=== PATIENT | male | born 2000 | race Caucasian/White ===

== ENCOUNTER 2024-02-20 01:59 | Emergency (ER) | payer BC, SELFPAY ==
[2024-02-20 02:01] VITALS: BP 159/94
[2024-02-20 02:08] VITALS: BMI 32.1
--- NOTE | 2024-02-20 02:22 | ED.SKININJ ---
HPI-Injury
General
Chief Complaint: Bite
Source: patient
Exam Limitations: none
Time Seen by Provider: 02/20/24 02:08
Nursing documentation reviewed up to this point in time: agreed with
History of Present Illness-Injury
Is this injury a work related problem?: No
Is pt an associate of [facility]?: No
Initial Injury comments:
23-year-old male bitten in the right foot by cat which was a stray that he recently took in he took to The track liner operator started his rabies series, patient has no redness or signs of infection at the bite he is wondering if he needs rabies it is now
his pet cat and is in his possession at home acting normally
Past History
Past History
ED Past Medical History: None
ED Past Surgical History: None
Social History
Tobacco: Non-smoker
Alcohol: None
Drug: None
Personal: Single
Living: alone
Employment: Employed
Review of Systems
Review of Systems
All Other Systems: Not applicable
Constitutional: Denies fever
Musculoskeletal: Reports no symptoms
Skin: Reports no symptoms
Phy Exam
Physical Exam
Physical Exam:
Physical Exam
General: no apparent distress, not acutely ill
Neck: No jaundice
Lungs: no acute respiratory distress.
Neuro: alert and oriented. no focal neurological deficits
Skin: no rash
Psychiatric: well kept. interactive and cooperative
Extremities: Superficial bite right foot
Course
Orders/Labs/Results
Orders:
Orders
02/20/24 02:19
Amoxicillin 875 mg/Clav 125 mg [Augmentin 875 mg/125 mg] 1 tablet PO NOW STA
Vital Signs
Initial and Last Documented VS:
Initial Vital Signs
Temp Pulse Resp BP Pulse Ox
98.5 F 75 18 159/94 99
02/20/24 02:01 02/20/24 02:01 02/20/24 02:01 02/20/24 02:01 02/20/24 02:01
Last Documented Vital Signs
Temp Pulse Resp BP Pulse Ox
98.5 F 75 18 159/94 99
02/20/24 02:01 02/20/24 02:01 02/20/24 02:01 02/20/24 02:01 02/20/24 02:01
MDM/Problems Addressed
Differential Diagnosis Includes:
Cat bite, cellulitis, consideration for rabies exposure
MDM/Problems Addressed:
Cat bite
*Pulse Oximetry
Patient hypoxic: no
*Critical Care Note
Total Time (30-74mins, 75-104mins- exclusive of procedures): Not Applicable
Update Note
Update Note:
Update, will provide wound care, antibiotics, no signs of infection actively now, is his pet cat, can be monitored for any behavioral issues have encouraged him to call his track liner operator or return to the ER if there is any issues with the cats
behavior
ED Attending Note
-
Portions of this chart may have been created with voice recognition software.� Occasional wrong word or��sound alike� substitutions may have occurred due to the inherent limitations of voice recognition software.
Discharge Plan
Departure
Patient Disposition: Home (Routine Discharge)
Date of Disposition: 02/20/24
Time of Disposition: 02:20
Patient with high blood pressure during this ER visit?: No
Condition: Good
Discharge Problem:
Cat bite involving extremity
Instructions: Animal Bites (DC)
Prescriptions:
New
amoxicillin-pot clavulanate 875-125 mg tablet
1 tab PO Q12H Qty: 10 0RF
Activity Restrictions/Additional Instructions:
Wash wound with soap and water
Start antibiotics
Return to the ER if any signs of infection at the bite site
Monitor your cath behavior at home, if there Is any behavioral issues, call your track liner operator or return to the ER immediately
Interventions
Interventions:
*Risk Screen - Suicide Last Done: 02/20/24 02:01
*General Assessment Last Done: 02/20/24 02:01
*Neglect/Abuse Screening Last Done: 02/20/24 02:01
ED- Fall Risk Assessment Last Done: 02/20/24 02:01
*ED COVID-19 Vaccine History Last Done: 02/20/24 02:01
ED-Skin Assessment Last Done: 02/20/24 02:20
Discharge Date and Time
Print Language: [id number]
[2024-02-20] MEDS: AUGMENTIN 875 MG/125 MG 1 TABLET PO (02:26)
== END 2024-02-20 02:48 | disposition home or self-care (01) ==
LOC: EMR 01:59
PROVIDERS: EMERGENCY PHYSICIAN Emergency Medicine
DX: S91.351A Open bite, right foot, initial encounter (principal); W55.01XA Bitten by cat, initial encounter
CPT/HCPCS: 99283